=== PATIENT | female | born 1945 | race Caucasian/White ===

== ENCOUNTER 2020-08-13 15:50 | Outpatient (CLI) | payer MEDICARE, OTHER | END 2020-08-13 15:51 | disposition home or self-care (01) | LOC: TBSIIMAG 15:50 | PROVIDERS: ATTEND Neurological Surgery | DX: Z48.811 Encounter for surgical aftercare following surgery on the nervous system (principal); Z98.2 Presence of cerebrospinal fluid drainage device | CPT/HCPCS: 70250 ==

== ENCOUNTER 2020-08-30 15:22 | Outpatient (CLI) | payer MEDICARE, OTHER | END 2020-08-30 15:23 | disposition home or self-care (01) | LOC: TBSIIMAG 15:22 | PROVIDERS: ATTEND Neurological Surgery | DX: G91.9 Hydrocephalus, unspecified (principal) | CPT/HCPCS: 70260 ==

== ENCOUNTER 2020-09-20 07:27 | Inpatient (IN) | payer MEDICARE, OTHER ==
[2020-09-19 09:54] VITALS: BMI 28.8
[2020-09-20] MEDS ORDERED: VANCOMYCIN HCL FS SCH (08:15)
[2020-09-20] MEDS ORDERED: GENTAMICIN FS SCH (08:15)
[2020-09-20] MEDS ORDERED: SODIUM CHLORIDE 0.9% FS SCH (08:15)
[2020-09-20] MEDS ORDERED: Vancomycin 1 GM/200 ML BAG ONE (09:52)
[2020-09-20] MEDS ORDERED: Thrombin 5000 UNITS/5 ML VIAL ONE (10:02)
[2020-09-20] MEDS ORDERED: Bacitracin Zinc Ointment 30 gm TUBE ONE (10:02)
[2020-09-20] MEDS ORDERED: Lidocaine 0.5%/Epinephrine 1:200,000 50 ml Vial ONE (10:02)
[2020-09-20] MEDS ORDERED: Fentanyl 100 MCG/2 ML VIAL ONE ×3 (10:51→13:25)
[2020-09-20] MEDS ORDERED: SUGAMMADEX SODIUM 200 MG/2 ML VIAL ONE (10:52)
[2020-09-20] MEDS ORDERED: Rocuronium Bromide 10 MG/ML (10ML VIAL) ONE (11:13)
[2020-09-20] MEDS ORDERED: Lidocaine 1% PF 5 ML VIAL ONE (11:13)
[2020-09-20] MEDS ORDERED: PROPOFOL 200 MG/20 ML VIAL ONE (11:13)
[2020-09-20] MEDS ORDERED: Ondansetron PF 4 MG/2 ML Vial ONE (11:13)
[2020-09-20] MEDS ORDERED: Acetaminophen/Codeine 30-300mg Tablet PO PRN (12:40)
[2020-09-20] MEDS ORDERED: Ondansetron PF 4 MG/2 ML Vial IVP PRN (12:40)
[2020-09-20] MEDS ORDERED: Promethazine HCl 12.5 MG SUPP PR PRN (12:40)
[2020-09-20] MEDS ORDERED: Promethazine 25 MG TAB PO PRN (12:40)
[2020-09-20] MEDS ORDERED: tiZANidine HCl 4 MG TAB PO PRN (12:40)
[2020-09-20] MEDS ORDERED: Promethazine HCl 25 MG/ML VIAL IM PRN (12:40)
[2020-09-20] MEDS ORDERED: Morphine 4 MG/ML VIAL SLOW IVP PRN (12:55)
[2020-09-20] MEDS ORDERED: Scopolamine 1.5 mg/72 hour Patch TD SCH (13:00)
[2020-09-20] MEDS ORDERED: Morphine 4 MG/ML VIAL ONE ×5 (13:39→15:11)
[2020-09-20] MEDS ORDERED: HYDROmorphone 0.5 MG/0.5 ML SYRINGE ONE (14:49)
[2020-09-20] MEDS: Acetaminophen/Codeine 30-300mg Tablet PO PRN ×2 (16:54→21:43)
[2020-09-20] MEDS: Vancomycin 1 GM in Premix Bag 1 BAG IVPB SCH (21:43)
[2020-09-20] MEDS: Sodium Chloride 0.9% 1,000 ML IV SCH (21:45)
[2020-09-21] MEDS ORDERED: diphenhydrAMINE 25 MG CAP PO SCH (00:15)
[2020-09-21] MEDS: Sodium Chloride 0.9% 1,000 ML IV SCH (03:54)
[2020-09-21] MEDS: Acetaminophen/Codeine 30-300mg Tablet PO PRN ×2 (04:59→09:43)
[2020-09-21] MEDS ORDERED: Gabapentin 300 MG CAP PO SCH ×2 (09:00→21:00)
[2020-09-21] MEDS ORDERED: Thyroid 30 MG TAB PO SCH (09:00)
[2020-09-21] MEDS: Vancomycin 1 GM in Premix Bag 1 BAG IVPB SCH (09:38)
[2020-09-21] MEDS: rOPINIRole HCl 1 MG TAB PO SCH ×2 (09:38→16:24)
[2020-09-21 13:19] VITALS: TEMP 98.3
[2020-09-21 16:20] VITALS: BP 97/59
[2020-09-21] MEDS ORDERED: Rosuvastatin 20 MG TAB PO SCH (21:00)
== END 2020-09-21 16:26 | disposition home or self-care (01) | DRG 32 ==
LOC: SURG A 07:27 → EDSTATUS 09:36 → SJJU 16:27
PROVIDERS: ADMIT Neurological Surgery; ATTEND Neurological Surgery
PROC: 00W60JZ Revision of Synthetic Substitute in Cerebral Ventricle, Open Approach (ICD-10-PCS; principal; 2020-09-20)
DX: T85.09XA Other mechanical complication of ventricular intracranial (communicating) shunt, initial encounter (principal); G91.0 Communicating hydrocephalus; M19.90 Unspecified osteoarthritis, unspecified site; J45.909 Unspecified asthma, uncomplicated; Z96.659 Presence of unspecified artificial knee joint; Y83.1 Surgical operation with implant of artificial internal device as the cause of abnormal reaction of the patient, or of later complication, without mention of misadventure at the time of the procedure; Z20.822 Contact with and (suspected) exposure to COVID-19; Z90.710 Acquired absence of both cervix and uterus; Z98.890 Other specified postprocedural states; Z79.899 Other long term (current) drug therapy; Z88.8 Allergy status to other drugs, medicaments and biological substances; Z87.891 Personal history of nicotine dependence; Z99.3 Dependence on wheelchair
CPT/HCPCS: 87070; 87077; 87186; 87205; 90471; 90732; G0009; J1170; J2001; J2270; J2405; J2704; J3010; J3370; J3490; Q0163

== ENCOUNTER 2020-12-23 12:26 | Outpatient (CLI) | payer MEDICARE, OTHER | END 2020-12-23 12:27 | disposition home or self-care (01) | LOC: TBSIIMAG 12:26 | PROVIDERS: ATTEND Neurological Surgery | DX: M48.061 Spinal stenosis, lumbar region without neurogenic claudication (principal); M47.12 Other spondylosis with myelopathy, cervical region; G91.0 Communicating hydrocephalus; M47.816 Spondylosis without myelopathy or radiculopathy, lumbar region; M51.36 Other intervertebral disc degeneration, lumbar region; M43.16 Spondylolisthesis, lumbar region; I67.82 Cerebral ischemia; Z98.1 Arthrodesis status | CPT/HCPCS: 70553; 72141; 72148 ==